=== PATIENT | female | born 1965 | race Caucasian/White ===

== ENCOUNTER 2019-01-28 08:51 | Day surgery (SDC) | payer BC ==
[2019-01-28] MEDS ORDERED: PROPOFOL 20 ML (09:04)
[2019-01-28] MEDS ORDERED: CEFAZOLIN 1 GM INJ (09:04)
[2019-01-28] MEDS ORDERED: MIDAZOLAM 1 MG/ML 2 ML INJ (09:05)
[2019-01-28] MEDS ORDERED: ONDANSETRON 4 MG INJ (09:05)
[2019-01-28] MEDS ORDERED: KETOROLAC 30 MG INJ (09:05)
[2019-01-28] MEDS ORDERED: FENTAnyl 50 MCG/ML VIAL IV ×2 (10:00)
[2019-01-28] MEDS ORDERED: ONDANSETRON 4 MG INJ IV ×2 (10:00→13:30)
[2019-01-28] MEDS ORDERED: HYDROmorphONE 0.5 MG/0.5 ML SYG SC (13:30)
[2019-01-28] MEDS: SOD CHLORIDE 0.9% 1,000 ML IV (13:30)
[2019-01-28] MEDS ORDERED: DIPHENHYDRAMINE 25 MG CAP PO (13:30)
[2019-01-28] MEDS: CEFAZOLIN 2 GM/50 ML (PMX) 50 ML IVPB ×2 (14:12→22:15)
[2019-01-28] MEDS: CEFAZOLIN 1 GM/50 ML (PMX) 50 ML IVPB (16:11)
[2019-01-28] MEDS: D5W-0.45 NACL + KCL 20 MEQ 1,000 ML IV (16:23)
[2019-01-28] MEDS: HYDROCODONE/APAP (5/325) TAB PO (17:42)
[2019-01-28] MEDS: ACETAMINOPHEN 325 MG TAB PO (21:27)
[2019-01-29] MEDS: D5W-0.45 NACL + KCL 20 MEQ 1,000 ML IV ×2 (02:23→12:13)
[2019-01-29] MEDS: ACETAMINOPHEN 325 MG TAB PO ×2 (02:26→09:45)
[2019-01-29] MEDS: CEFAZOLIN 2 GM/50 ML (PMX) 50 ML IVPB (06:27)
== END 2019-01-29 13:39 | disposition home or self-care (01) ==
LOC: SDS 08:51 → MS1 16:02
DX: C77.3 Secondary and unspecified malignant neoplasm of axilla and upper limb lymph nodes (principal); C50.912 Malignant neoplasm of unspecified site of left female breast
CPT/HCPCS: 38500; 84703; 88307

== ENCOUNTER 2019-04-08 06:19 | Day surgery (SDC) | payer BC ==
[2019-04-08] MEDS ORDERED: CEFAZOLIN 1 GM/50 ML (PMX) 50 ML IVPB ×2 (08:30→09:40)
[2019-04-08] MEDS ORDERED: LIDOCAINE 1%/EPI 30 ML INJ (08:44)
[2019-04-08] MEDS ORDERED: HEPARIN 1000 UNITS/ML 10 ML INJ (08:45)
[2019-04-08] MEDS ORDERED: POLYMYXIN/BACITRACIN 1L IRRIG IRR (09:00)
[2019-04-08] MEDS ORDERED: MIDAZOLAM 1 MG/ML 2 ML INJ (09:48)
[2019-04-08] MEDS ORDERED: FENTAnyl 50 MCG/ML VIAL (09:48)
== END 2019-04-08 11:50 | disposition home or self-care (01) ==
LOC: SDS 06:19
DX: C50.912 Malignant neoplasm of unspecified site of left female breast (principal)
CPT/HCPCS: 36561; 76942